=== PATIENT | female | born 1960 | race Caucasian/White ===

== ENCOUNTER 2018-09-27 18:15 | Inpatient (IN) | payer MEDICAID, OTHER ==
[2018-09-27 19:15] LABS: Glucose,Whole Blood 311 mg/dL (75-99)
[2018-09-27] MEDS ORDERED: THIAMINE 100 MG/ML 2 ML VIAL IM STA (19:25)
[2018-09-27] MEDS ORDERED: LORazepam 2 MG/ML INJ IV PRN ×3 (19:25)
[2018-09-27] MEDS ORDERED: SODIUM CHLORIDE 0.9% 1,000 ML IV STA (19:29)
--- NOTE | 2018-09-27 19:53 | ED ---
General Adult HPI - General Source: patient, RN notes reviewed Mode of arrival: ambulatory Limitations: no limitations <Robert Elias P - Last Filed: 09/28/18 13:02> <Cyndi Kolb P - Last Filed: 10/01/18 09:04> - General Chief complaint: Alcohol Stated complaint: diabetic/ETOH Time Seen by Provider: 09/27/18 18:50 - History of Present Illness Initial comments: 58-year-old female with a past medical history of alcoholism presents to the emergency department for multiple complaints. Patient states she is at [facility] for alcoholism but has been drinking today. She states that she has elevated glucose levels at [facility] in the 300s. She states she also is feeling depressed. She states she has not taken her antidepressants for the past 3 weeks because she "crushed and snorted them." Patient states she has had suicidal thoughts over the past couple days. Patient states the thoughts were worst yesterday. She states her plan was to take all of her medications at once when they are refilled in one week. She denies any homicidal thoughts. Caregivers from [facility] brought her in because she is supposed to go to [facility] but her glucose levels were too high for them to accept her, in additional to the suicidal thoughts. Patient has no other complaints at this time including shortness of breath, chest pain, abdominal pain, nausea or vomiting, headache, or visual changes. (Robert Elias) - Related Data Home Medications Medication Instructions Recorded Confirmed Citalopram Hydrobromide [CeleXA] 10 mg PO DAILY 09/27/18 09/28/18 DULoxetine HCL [Cymbalta] 30 mg PO DAILY 09/27/18 09/28/18 Ergocalciferol (Vitamin D2) 50,000 unit PO Q7D 09/27/18 09/28/18 [Vitamin D2] Gabapentin [Neurontin] 300 mg PO TID 09/27/18 09/28/18 Hydrochlorothiazide 25 mg PO DAILY 09/27/18 09/28/18 Ibuprofen [Motrin] 800 mg PO TID PRN 09/27/18 09/28/18 Insulin Glargine,Hum.rec.anlog 30 unit SQ HS 09/27/18 09/28/18 [Basaglar Hinapen U-100] Lisinopril [Zestril] 20 mg PO DAILY 09/27/18 09/28/18 metFORMIN HCL [Glucophage] 500 mg PO DAILY 09/27/18 09/28/18 Allergies Allergy/AdvReac Type Severity Reaction Status Date / Time No Known Allergies Allergy Unverified 09/28/18 05:54 Review of Systems ROS Other: All systems not noted in ROS Statement are negative. <Robert Elias P - Last Filed: 09/28/18 13:02> ROS Other: All systems not noted in ROS Statement are negative. <Cyndi Kolb P - Last Filed: 10/01/18 09:04> ROS Statement: Those systems with pertinent positive or pertinent negative responses have been documented in the HPI. Past Medical History History of Any Multi-Drug Resistant Organisms: None Reported Past Psychological History: Depression Past Alcohol Use History: Abuse, Daily Past Drug Use History: None Reported <Robert Elias P - Last Filed: 09/28/18 13:02> General Exam Limitations: no limitations General appearance: alert, in no apparent distress Head exam: Present: atraumatic, normocephalic, normal inspection Eye exam: Present: normal appearance, PERRL, EOMI. Absent: scleral icterus, conjunctival injection, periorbital swelling ENT exam: Present: normal exam, normal oropharynx, mucous membranes moist Neck exam: Present: normal inspection, full ROM. Absent: tenderness, meningismus, lymphadenopathy Respiratory exam: Present: normal lung sounds bilaterally. Absent: respiratory distress, wheezes, rales, rhonchi, stridor Cardiovascular Exam: Present: regular rate, normal rhythm, normal heart sounds. Absent: systolic murmur, diastolic murmur, rubs, gallop, clicks Neurological exam: Present: alert, oriented X3, CN II-XII intact Psychiatric exam: Present: normal affect, normal mood <Robert Elias P - Last Filed: 09/28/18 13:02> Vital Signs 09/27/18 18:43 Temperature 98.3 F Pulse Rate 105 H Respiratory 16 Rate Blood Pressure 143/83 O2 Sat by Pulse 96 Oximetry Medical Decision Making - Lab Data Result diagrams: 09/27/18 21:06 09/27/18 21:06 <Robert Elias P - Last Filed: 09/28/18 13:02> - Lab Data Result diagrams: 09/27/18 21:06 09/27/18 21:06 <Cyndi Kolb - Last Filed: 10/01/18 09:04> - Medical Decision Making 58-year-old female with a past medical history of alcohol use and presents to the emergency department for multiple complaints. She states she is at [facility] for alcohol and has been drinking today. Patient also has suicidal thoughts with a plan to overdose on her medications once they're refilled next week. On exam patient is visibly upset but is consolable. Glucose is 311, patient given a liter of fluids which did decrease to 250. CBC and CMP otherwise unremarkable. Patient will be seeing EPS once sober. Care was handed out to Dr. Kolb at 2300 pending EPS eval. (Robert Elias) EPS evaluated the patient and recommend admission. Patient signed herself in willingly. Patient transferred to psychiatric floor. (Cyndi Kolb) - Lab Data Lab Results 09/27/18 09/27/18 09/27/18 Range/Units 18:58 21:06 21:06 WBC (3.8-10.6) k/uL RBC (3.80-5.40) m/uL Hgb (11.4-16.0) gm/dL Hct (34.0-46.0) % MCV (80.0-100.0) fL MCH (25.0-35.0) pg MCHC (31.0-37.0) g/dL RDW (11.5-15.5) % Plt Count (150-450) k/uL Neutrophils % % Lymphocytes % % Monocytes % % Eosinophils % % Basophils % % Neutrophils # (1.3-7.7) k/uL Lymphocytes # (1.0-4.8) k/uL Monocytes # (0-1.0) k/uL Eosinophils # (0-0.7) k/uL Basophils # (0-0.2) k/uL Sodium 143 (137-145) mmol/L Potassium 3.9 (3.5-5.1) mmol/L Chloride 107 (98-107) mmol/L Carbon Dioxide 27 (22-30) mmol/L Anion Gap 9 mmol/L BUN 14 (7-17) mg/dL Creatinine 0.63 (0.52-1.04) mg/dL Est GFR (CKD-EPI)AfAm >90 (>60 ml/min/1.73 sqM) Est GFR (CKD-EPI)NonAf >90 (>60 ml/min/1.73 sqM) Glucose 305 H (74-99) mg/dL POC Glucose (mg/dL) 311 H (75-99) mg/dL POC Glu Milk Receiver ID Bettina Chatman Calcium 8.7 (8.4-10.2) mg/dL Magnesium 1.8 (1.6-2.3) mg/dL Total Bilirubin 0.2 (0.2-1.3) mg/dL AST 13 L (14-36) U/L ALT 31 (9-52) U/L Alkaline Phosphatase 176 H (38-126) U/L Total Protein 6.7 (6.3-8.2) g/dL Albumin 3.7 (3.5-5.0) g/dL Urine HCG, Qual Not Detected (Not Detectd) Urine Opiates Screen (NotDetected) Ur Oxycodone Screen (NotDetected) Urine Methadone Screen (NotDetected) Ur Propoxyphene Screen (NotDetected) Ur Barbiturates Screen (NotDetected) U Tricyclic Antidepress (NotDetected) Ur Phencyclidine Scrn (NotDetected) Ur Amphetamines Screen (NotDetected) U Methamphetamines Scrn (NotDetected) U Benzodiazepines Scrn (NotDetected) Urine Cocaine Screen (NotDetected) U Marijuana (THC) Screen (NotDetected) Acetone, Qual Negative (Negative) 09/27/18 09/27/18 09/27/18 Range/Units 21:06 21:06 23:00 WBC 6.7 (3.8-10.6) k/uL RBC 3.76 L (3.80-5.40) m/uL Hgb 11.1 L (11.4-16.0) gm/dL Hct 34.1 (34.0-46.0) % MCV 90.8 (80.0-100.0) fL MCH 29.4 (25.0-35.0) pg MCHC 32.4 (31.0-37.0) g/dL RDW 14.5 (11.5-15.5) % Plt Count 274 (150-450) k/uL Neutrophils % 52 % Lymphocytes % 38 % Monocytes % 4 % Eosinophils % 3 % Basophils % 1 % Neutrophils # 3.5 (1.3-7.7) k/uL Lymphocytes # 2.6 (1.0-4.8) k/uL Monocytes # 0.3 (0-1.0) k/uL Eosinophils # 0.2 (0-0.7) k/uL Basophils # 0.0 (0-0.2) k/uL Sodium (137-145) mmol/L Potassium (3.5-5.1) mmol/L Chloride (98-107) mmol/L Carbon Dioxide (22-30) mmol/L Anion Gap mmol/L BUN (7-17) mg/dL Creatinine (0.52-1.04) mg/dL Est GFR (CKD-EPI)AfAm (>60 ml/min/1.73 sqM) Est GFR (CKD-EPI)NonAf (>60 ml/min/1.73 sqM) Glucose (74-99) mg/dL POC Glucose (mg/dL) 250 H (75-99) mg/dL POC Glu Milk Receiver ID William Elmore Calcium (8.4-10.2) mg/dL Magnesium (1.6-2.3) mg/dL Total Bilirubin (0.2-1.3) mg/dL AST (14-36) U/L ALT (9-52) U/L Alkaline Phosphatase (38-126) U/L Total Protein (6.3-8.2) g/dL Albumin (3.5-5.0) g/dL Urine HCG, Qual (Not Detectd) Urine Opiates Screen Not Detected (NotDetected) Ur Oxycodone Screen Not Detected (NotDetected) Urine Methadone Screen Not Detected (NotDetected) Ur Propoxyphene Screen Not Detected (NotDetected) Ur Barbiturates Screen Not Detected (NotDetected) U Tricyclic Antidepress Not Detected (NotDetected) Ur Phencyclidine Scrn Not Detected (NotDetected) Ur Amphetamines Screen Not Detected (NotDetected) U Methamphetamines Scrn Not Detected (NotDetected) U Benzodiazepines Scrn Not Detected (NotDetected) Urine Cocaine Screen Not Detected (NotDetected) U Marijuana (THC) Screen Not Detected (NotDetected) Acetone, Qual (Negative) Disposition <Robert Elias P - Last Filed: 09/28/18 13:02> <Cyndi Kolb P - Last Filed: 10/01/18 09:04> Clinical Impression: Depression, Suicidal thoughts Disposition: ADMITTED IP TO THIS HOSP Condition: Fair
[2018-09-27 21:15] LABS: Basophils % (A) 1 %; Eosinophils # (A) 0.2 k/uL (0-0.7); Eosinophils % (A) 3 %; HCT 34.1 % (34.0-46.0); HGB 11.1 gm/dL (11.4-16.0); Lymphocytes # (A) 2.6 k/uL (1.0-4.8); Lymphocytes % (A) 38 %; MCH 29.4 pg (25.0-35.0); MCHC 32.4 g/dL (31.0-37.0); MCV 90.8 fL (80.0-100.0); Mean Platelet Volume 6.6; Monocytes # (A) 0.3 k/uL (0-1.0); Monocytes % (A) 4 %; Neutrophils # (A) 3.5 k/uL (1.3-7.7); Neutrophils % (A) 52 %; Platelet Count 274 k/uL (150-450); RBC 3.76 m/uL (3.80-5.40); RDW 14.5 % (11.5-15.5); WBC 6.7 k/uL (3.8-10.6)
[2018-09-27] MEDS: THIAMINE 100 MG TAB PO SCH ×2 (21:21→21:22)
[2018-09-27 21:27] LABS: Amphetamine Screen,Urine Not Detected (NotDetected); Barbiturate Screen,Urine Not Detected (NotDetected); Benzodiazepines Screen,Urine Not Detected (NotDetected); Cocaine Screen,Urine Not Detected (NotDetected); Methadone Screen, Urine Not Detected (NotDetected); Opiate Screen,Urine Not Detected (NotDetected); Oxycodone Screen, Urine Not Detected (NotDetected); Phencyclidine Screen,Urine Not Detected (NotDetected); Tricyclic Antidepressant,Urine Not Detected (NotDetected); Urn Cannabinoid Scrn Not Detected (NotDetected)
[2018-09-27 21:31] LABS: ALT 31 U/L (9-52); AST 13 U/L (14-36); Albumin 3.7 g/dL (3.5-5.0); Alkaline Phosphatase 176 U/L (38-126); Anion Gap 9 mmol/L; Blood Urea Nitrogen 14 mg/dL (7-17); Calcium 8.7 mg/dL (8.4-10.2); Carbon Dioxide 27 mmol/L (22-30); Chloride 107 mmol/L (98-107); Glucose 305 mg/dL (74-99); Magnesium 1.8 mg/dL (1.6-2.3); Potassium 3.9 mmol/L (3.5-5.1); Sodium 143 mmol/L (137-145); Total Bilirubin 0.2 mg/dL (0.2-1.3); Total Protein 6.7 g/dL (6.3-8.2)
[2018-09-27 23:02] LABS: Glucose,Whole Blood 250 mg/dL (75-99)
[2018-09-27] MEDS ORDERED: SODIUM CHLORIDE 0.9% 1,000 ML IV ONE (23:09)
[2018-09-28 05:36] LABS: Glucose,Whole Blood 251 mg/dL (75-99)
[2018-09-28] MEDS ORDERED: MAG HYDROX/AL HYDROX/SIMETH 30 ML CUP PO PRN (05:36)
[2018-09-28] MEDS ORDERED: ACETAMINOPHEN TAB 325 MG TAB PO PRN (05:36)
[2018-09-28] MEDS ORDERED: MAGNESIUM HYDROXIDE 2,400 MG/10 ML CUP PO PRN (05:36)
[2018-09-28] MEDS ORDERED: LORazepam 1 MG TAB PO PRN (05:42)
[2018-09-28 07:02] VITALS: BMI 37.6
[2018-09-28] MEDS: INSULIN ASPART 100 UNIT/ML 1 ML 10 ML VIAL SQ SCH ×3 (07:53→17:54)
[2018-09-28 07:54] LABS: Appearance,Urine Cloudy (Clear); Bacteria,Urine Occasional /hpf; Bilirubin,Urine Negative (Negative); Blood,Urine Negative (Negative); Color,Urine Light Yellow; Glucose,Urine (UA) 4+ (Negative); Ketones,Urine Negative (Negative); Leukocyte Esterase,Urine Large (Negative); Nitrite,Urine Positive (Negative); PH, Urine 5.5 (5.0-8.0); Protein,Urine Trace (Negative); RBC,Urine 1 /hpf (0-5); Specific Gravity,Urine 1.015 (1.001-1.035); Squamous Epithelial Cell,Urine 3 /hpf (0-4); Urobilinogen,Urine <2.0 mg/dL (<2.0); WBC,Urine 147 /hpf (0-5)
[2018-09-28] MEDS: LORazepam 1 MG TAB PO SCH ×3 (08:00→21:13)
[2018-09-28] MEDS: LISINOPRIL 20 MG TAB PO SCH (08:00)
[2018-09-28] MEDS: GABAPENTIN 300 MG CAP PO SCH ×3 (08:00→21:13)
[2018-09-28] MEDS: metFORMIN 500 MG TAB PO SCH (08:00)
[2018-09-28] MEDS ORDERED: NICOTINE 14MG/24HR PATCH TRANSDERM SCH (09:00)
[2018-09-28 11:14] LABS: Albumin 3.8 g/dL (3.5-5.0); Bilirubin, Delta 0.1 mg/dL (0.0-0.2); Bilirubin,Unconjugated 0.6 mg/dL (0.0-1.1); Total Bilirubin 0.7 mg/dL (0.2-1.3); Total Protein 6.6 g/dL (6.3-8.2)
--- NOTE | 2018-09-28 11:26 | P.HP ---
Psychiatric H&P - . History & Physical: Allergies Allergy/AdvReac Type Severity Reaction Status Date / Time No Known Allergies Allergy Unverified 09/28/18 05:54 Vital Signs Temp 97.9 F 09/28/18 06:53 Pulse 89 09/28/18 09:56 Resp 15 09/28/18 06:53 BP 161/76 09/28/18 09:56 Pulse Ox 96 09/28/18 06:53 Intake & Output 09/27/18 09/28/18 09/28/18 18:59 06:59 18:59 Weight 90.718 kg 96.417 kg Laboratory Last Values WBC 6.7 k/uL (3.8-10.6) 09/27/18 21:06 RBC 3.76 m/uL (3.80-5.40) L 09/27/18 21:06 Hgb 11.1 gm/dL (11.4-16.0) L 09/27/18 21:06 Hct 34.1 % (34.0-46.0) 09/27/18 21:06 MCV 90.8 fL (80.0-100.0) 09/27/18 21:06 MCH 29.4 pg (25.0-35.0) 09/27/18 21:06 MCHC 32.4 g/dL (31.0-37.0) 09/27/18 21:06 RDW 14.5 % (11.5-15.5) 09/27/18 21:06 Plt Count 274 k/uL (150-450) 09/27/18 21:06 Neutrophils % 52 % 09/27/18 21:06 Lymphocytes % 38 % 09/27/18 21:06 Monocytes % 4 % 09/27/18 21:06 Eosinophils % 3 % 09/27/18 21:06 Basophils % 1 % 09/27/18 21:06 Neutrophils # 3.5 k/uL (1.3-7.7) 09/27/18 21:06 Lymphocytes # 2.6 k/uL (1.0-4.8) 09/27/18 21:06 Monocytes # 0.3 k/uL (0-1.0) 09/27/18 21:06 Eosinophils # 0.2 k/uL (0-0.7) 09/27/18 21:06 Basophils # 0.0 k/uL (0-0.2) 09/27/18 21:06 Sodium 143 mmol/L (137-145) 09/27/18 21:06 Potassium 3.9 mmol/L (3.5-5.1) 09/27/18 21:06 Chloride 107 mmol/L (98-107) 09/27/18 21:06 Carbon Dioxide 27 mmol/L (22-30) 09/27/18 21:06 Anion Gap 9 mmol/L 09/27/18 21:06 BUN 14 mg/dL (7-17) 09/27/18 21:06 Creatinine 0.63 mg/dL (0.52-1.04) 09/27/18 21:06 Est GFR (CKD-EPI)AfAm >90 (>60 ml/min/1.73 sqM) 09/27/18 21:06 Est GFR (CKD-EPI)NonAf >90 (>60 ml/min/1.73 sqM) 09/27/18 21:06 Glucose 305 mg/dL (74-99) H 09/27/18 21:06 POC Glucose (mg/dL) 251 mg/dL (75-99) H 09/28/18 05:33 POC Glu Armature Inspector ID William Elmore 09/28/18 05:33 Calcium 8.7 mg/dL (8.4-10.2) 09/27/18 21:06 Magnesium 1.8 mg/dL (1.6-2.3) 09/27/18 21:06 Total Bilirubin 0.7 mg/dL (0.2-1.3) 09/28/18 10:32 Conjugated Bilirubin 0.0 mg/dL (0.0-0.3) 09/28/18 10:32 Unconjugated Bilirubin 0.6 mg/dL (0.0-1.1) 09/28/18 10:32 Delta Bilirubin 0.1 mg/dL (0.0-0.2) 09/28/18 10:32 AST 15 U/L (14-36) 09/28/18 10:32 ALT 20 U/L (9-52) 09/28/18 10:32 Alkaline Phosphatase 146 U/L (38-126) H 09/28/18 10:32 Total Protein 6.6 g/dL (6.3-8.2) 09/28/18 10:32 Albumin 3.8 g/dL (3.5-5.0) 09/28/18 10:32 Triglycerides 76 mg/dL (<150) 09/28/18 10:32 Cholesterol 201 mg/dL (<200) H 09/28/18 10:32 LDL Cholesterol, Calc 82 mg/dL (0-99) 09/28/18 10:32 HDL Cholesterol 104 mg/dL (40-60) H 09/28/18 10:32 Urine Color Light Yellow 09/28/18 07:25 Urine Appearance Cloudy (Clear) H 09/28/18 07:25 Urine pH 5.5 (5.0-8.0) 09/28/18 07:25 Ur Specific [place] 1.015 (1.001-1.035) 09/28/18 07:25 Urine Protein Trace (Negative) H 09/28/18 07:25 Urine Glucose (UA) 4+ (Negative) H 09/28/18 07:25 Urine Ketones Negative (Negative) 09/28/18 07:25 Urine Blood Negative (Negative) 09/28/18 07:25 Urine Nitrite Positive (Negative) H 09/28/18 07:25 Urine Bilirubin Negative (Negative) 09/28/18 07:25 Urine Urobilinogen <2.0 mg/dL (<2.0) 09/28/18 07:25 Ur Leukocyte Esterase Large (Negative) H 09/28/18 07:25 Urine RBC 1 /hpf (0-5) 09/28/18 07:25 Urine WBC 147 /hpf (0-5) H 09/28/18 07:25 Ur Squamous Epith Cells 3 /hpf (0-4) 09/28/18 07:25 Urine Bacteria Occasional /hpf (None) H 09/28/18 07:25 Urine HCG, Qual Not Detected (Not Detectd) 09/27/18 21:06 Urine Opiates Screen Not Detected (NotDetected) 09/27/18 21:06 Ur Oxycodone Screen Not Detected (NotDetected) 09/27/18 21:06 Urine Methadone Screen Not Detected (NotDetected) 09/27/18 21:06 Ur Propoxyphene Screen Not Detected (NotDetected) 09/27/18 21:06 Ur Barbiturates Screen Not Detected (NotDetected) 09/27/18 21:06 U Tricyclic Antidepress Not Detected (NotDetected) 09/27/18 21:06 Ur Phencyclidine Scrn Not Detected (NotDetected) 09/27/18 21:06 Ur Amphetamines Screen Not Detected (NotDetected) 09/27/18 21:06 U Methamphetamines Scrn Not Detected (NotDetected) 09/27/18 21:06 U Benzodiazepines Scrn Not Detected (NotDetected) 09/27/18 21:06 Urine Cocaine Screen Not Detected (NotDetected) 09/27/18 21:06 U Marijuana (THC) Screen Not Detected (NotDetected) 09/27/18 21:06 Acetone, Qual Negative (Negative) 09/27/18 21:06 09/28/18 11:19 IDENTIFYING DATA: This patient is a 58-year-old but female who was admitted to the mental health unit for acute suicidal ideation. HPI: The patient was admitted to the mental health unit through the emergency room. She presented with a markedly elevated blood sugar and she was intoxicated with alcohol. She has a history of major depressive disorder and alcohol use disorder. She reported she had recently relapsed for the last week drinking a fifth per day. She has 3 DUI offenses and was concerned that this would violate her probation and send her to prison/senior living. She describes feeling depressed tearful on a regular basis and feels currently hopeless. She had thoughts of overdosing on her medications once she got them filled. Appetite stable sleep has been impaired energies been low. She endorses no significant anxiety symptoms. No endorsed history of hypomanic or manic episodes. She is reporting no auditory or visual hallucinations or any specific delusions. PAST PSYCHIATRIC HISTORY: The patient reports no prior inpatient psychiatric admissions, no history of suicide attempts, she was prescribed Cymbalta 30 mg daily and Celexa 10 mg daily concurrently at a rehab facility and this has been perpetuated by a nurse practitioner. In the past she had been treated with Prozac but found it ineffective. PMH: Diabetes requiring insulin hypertension treated with lisinopril ALLERGIES: NO KNOWN DRUG ALLERGIES MEDICATIONS: She was placed on Neurontin for diabetic neuropathy but has not found it helpful CHEMICAL DEPENDENCY HISTORY: Alcohol use disorder, most recent relapses one week ago where she has been consuming a fifth a day. Prior to that she reports she was sober for several months. No reported use of marijuana or illicit drugs. She has been in inpatient chemical dependency treatment twice and a longer term outpatient program. FAMILY PSYCHIATRIC HISTORY: None reported, no suicides in the family FAMILY CHEMICAL DEPENDENCY HISTORY: Her father and brother were known to have alcohol use disorders SOCIAL HISTORY: The patient is 58 years old she's been for 25 years but for 10 years. She has no house or apartment of her own. She had been staying at a three-quarter house through [place]. She has 1 son 1 daughter. She is originally from [place]. She is currently unemployed no service. Legal history involves 2 DUI arrests in the remote past and a third DUI arrest this past December. She did spend 81 days in prison. She is currently on probation. Abuse history none reported. MENTAL STATUS EXAM: The patient is an overweight female appearing her stated age. She is dressed in her own clothing. Hygiene grooming fair. She is pleasant and cooperative. She endorses a depressed mood with hopelessness thinking with recent suicidal ideation with plan of overdosing. She reports no homicidal ideation intent or plan. She demonstrates a constricted affect. She endorses no auditory or visual hallucinations or any specific delusions there is no observed evidence of psychosis. Thought process is linear she demonstrates no circumstantial thinking tangential thinking loose associations or flight of ideas. She does not appear hypomanic or manic. She demonstrates no verbal or physical aggressiveness. She demonstrates no involuntary repetitive movements. She is oriented to person place and date. She is able to name the days of the week backwards. STRENGTHS/WEAKNESSES: Strengths: Willing to receive treatment voluntarily weaknesses: Alcohol use disorder INTELLECTUAL FUNCTIONING: Average IMPRESSIONS: [] 1. Major depressive disorder recurrent severe without psychosis, alcohol use disorder 2. Diabetes, history of hypertension, neuropathy 3. Potential violation of probation PLAN: The patient has been admitted to the mental health unit voluntarily. We reviewed her presenting symptoms and treatment options. We will discontinue the Celexa and continue the Cymbalta but increase the dose to 60 mg daily. We will at least temporarily continue the Neurontin but we'll consider discontinuing it. Ativan is being used to prevent alcohol withdrawal symptoms. She demonstrates no tremor or physical evidence of withdrawal at this point. She will be seen by internal medicine for routine history and physical exam. Social work will meet with the patient to complete a psychosocial assessment. We will involve family in treatment and discharge planning as she will allow. She is encouraged to attend groups.
[2018-09-28] MEDS: FOLIC ACID 1 MG TAB PO SCH (11:35)
[2018-09-28] MEDS: DULoxetine HCL 60 MG CAPSULE.DR PO SCH (11:35)
[2018-09-28] MEDS: THIAMINE 100 MG TAB PO SCH (11:35)
[2018-09-28 12:36] LABS: Glucose,Whole Blood 217 mg/dL (75-99)
--- NOTE | 2018-09-28 17:14 | P.CONS ---
History of Present Illness - History of Present Illness This is a pleasant 58 years old female with past medical history of diabetes mellitus, hypertension, diabetic neuropathy and Crohn's disease. Presents with signs and symptoms of major to separate disorder with psychosis and alcohol use disorder. she states she comes to the hosptial because she was drinking again she drinks a half pint daily ,seven days a week, her last drink was yesterday , usually she does not go to alcohol withdrawal, or very mild one , pt is currently on ativan prn . also she takes glucophage 500 mg bid and 30 U of long acting insulin once at night ( she could not remember the name of the medicine ) and she takes lisinopril for HTN. On admission Vitas looks stable, blood pressure is a little high side. Sugar and 217-50 range. LFTs showing liver enzymes within normal range. Urinalysis is suspicious for infection, no fever or leukocytosis. We will treat her with short course of antibiotics which can be given orally. Review of Systems CONSTITUTIONAL: No fever, no malaise, no fatigue. HEENT: No recent visual problems or hearing problems. Denied any sore throat. CARDIOVASCULAR: No orthopnea, PND, no palpitations, no syncope. PULMONARY: No shortness of breath, no cough, no hemoptysis. GASTROINTESTINAL: No diarrhea, no nausea, no vomiting, no abdominal pain. Normoactive bowel sounds. NEUROLOGICAL: No headaches, no weakness, no numbness. HEMATOLOGICAL: Denies any bleeding or petechiae. GENITOURINARY: Denies any burning micturition, frequency, or urgency. MUSCULOSKELETAL/RHEUMATOLOGICAL: Denies any joint pain, swelling, or any muscle pain. ENDOCRINE: Denies any polyuria or polydipsia. Past Medical History Past Medical History: Diabetes Mellitus, Hypertension Additional Past Medical History / Comment(s): Neuropathy bilat lower extremeties , Crohns, Carpal Tunnel History of Any Multi-Drug Resistant Organisms: None Reported Additional Past Surgical History / Comment(s): 2 C sections, double hernia @ 12 years old Past Psychological History: Depression Past Alcohol Use History: Abuse, Daily Past Drug Use History: None Reported Medications and Allergies Home Medications Medication Instructions Recorded Confirmed Type Citalopram Hydrobromide [CeleXA] 10 mg PO DAILY 09/27/18 09/28/18 History DULoxetine HCL [Cymbalta] 30 mg PO DAILY 09/27/18 09/28/18 History Ergocalciferol (Vitamin D2) 50,000 unit PO Q7D 09/27/18 09/28/18 History [Vitamin D2] Gabapentin [Neurontin] 300 mg PO TID 09/27/18 09/28/18 History Hydrochlorothiazide 25 mg PO DAILY 09/27/18 09/28/18 History Ibuprofen [Motrin] 800 mg PO TID PRN 09/27/18 09/28/18 History Insulin Glargine,Hum.rec.anlog 30 unit SQ HS 09/27/18 09/28/18 History [Basaglar Kwikpen U-100] Lisinopril [Zestril] 20 mg PO DAILY 09/27/18 09/28/18 History metFORMIN HCL [Glucophage] 500 mg PO DAILY 09/27/18 09/28/18 History Allergies Allergy/AdvReac Type Severity Reaction Status Date / Time No Known Allergies Allergy Unverified 09/28/18 05:54 Physical Exam Vitals: Vital Signs Temp Pulse Pulse Resp BP BP Pulse Ox 09/28/18 09:56 89 161/76 09/28/18 06:53 97.9 F 92 15 157/85 96 09/28/18 06:51 70 16 148/70 97 09/27/18 18:43 98.3 F 105 H 16 143/83 96 Intake and Output 09/28/18 09/28/18 09/28/18 06:59 14:59 22:59 Other: Weight 96.417 kg GENERAL: The patient is alert and oriented x3, not in any acute distress. Well developed, well nourished. HEENT: Pupils are round and equally reacting to light. EOMI. No scleral icterus. No conjunctival pallor. Normocephalic, atraumatic. No pharyngeal erythema. No thyromegaly. CARDIOVASCULAR: S1 and S2 present. No murmurs, rubs, or gallops. PULMONARY: Chest is clear to auscultation, no wheezing or crackles. ABDOMEN: Soft, nontender, nondistended, normoactive bowel sounds. No palpable organomegaly. MUSCULOSKELETAL: No joint swelling or deformity. EXTREMITIES: No cyanosis, clubbing, or pedal edema. NEUROLOGICAL: Gross neurological examination did not reveal any focal deficits. SKIN: No rashes. Results CBC & Chem 7: 09/27/18 21:06 09/27/18 21:06 Labs: Abnormal Lab Results - Last 24 Hours (Table) 09/27/18 09/27/18 09/27/18 Range/Units 18:58 21:06 21:06 RBC 3.76 L (3.80-5.40) m/uL Hgb 11.1 L (11.4-16.0) gm/dL Glucose 305 H (74-99) mg/dL POC Glucose (mg/dL) 311 H (75-99) mg/dL AST 13 L (14-36) U/L Alkaline Phosphatase 176 H (38-126) U/L Cholesterol (<200) mg/dL HDL Cholesterol (40-60) mg/dL Urine Appearance (Clear) Urine Protein (Negative) Urine Glucose (UA) (Negative) Urine Nitrite (Negative) Ur Leukocyte Esterase (Negative) Urine WBC (0-5) /hpf Urine Bacteria (None) /hpf 09/27/18 09/28/18 09/28/18 Range/Units 23:00 05:33 07:25 RBC (3.80-5.40) m/uL Hgb (11.4-16.0) gm/dL Glucose (74-99) mg/dL POC Glucose (mg/dL) 250 H 251 H (75-99) mg/dL AST (14-36) U/L Alkaline Phosphatase (38-126) U/L Cholesterol (<200) mg/dL HDL Cholesterol (40-60) mg/dL Urine Appearance Cloudy H (Clear) Urine Protein Trace H (Negative) Urine Glucose (UA) 4+ H (Negative) Urine Nitrite Positive H (Negative) Ur Leukocyte Esterase Large H (Negative) Urine WBC 147 H (0-5) /hpf Urine Bacteria Occasional H (None) /hpf 09/28/18 09/28/18 Range/Units 10:32 12:22 RBC (3.80-5.40) m/uL Hgb (11.4-16.0) gm/dL Glucose (74-99) mg/dL POC Glucose (mg/dL) 217 H (75-99) mg/dL AST (14-36) U/L Alkaline Phosphatase 146 H (38-126) U/L Cholesterol 201 H (<200) mg/dL HDL Cholesterol 104 H (40-60) mg/dL Urine Appearance (Clear) Urine Protein (Negative) Urine Glucose (UA) (Negative) Urine Nitrite (Negative) Ur Leukocyte Esterase (Negative) Urine WBC (0-5) /hpf Urine Bacteria (None) /hpf Assessment and Plan Assessment: Alcohol abuse Risk for alcohol withdrawal History of diabetes mellitus Diabetic neuropathy Essential hypertension Major depression with psychosis and other psychiatric illnesses, management as per primary site team. Plan: This is a pleasant 58 years old female presents with depressive symptoms. Consult and further medical management. We'll put her on Ativan when necessary for possible local withdrawal. Neurontin she takes will help comment down the patient. Keflex for UTI. Continue with metformin and lisinopril. we will add levemir 10 units at night instead of the 30 units she was taking at home and c/ w ISS . Norvasc 2.5 mg as a start Labs and medication were reviewed.. Continue same treatment. Continue with symptomatic treatment. Resume home medication. Monitor lytes and vitals. DVT and GI prophylaxis. Further recommendations of the clinical course of the patient DVT prophylaxis: Subcutaneous heparin GI Prophylaxis: Pepcid PT/OT: Pending Prognosis is guarded
[2018-09-28] MEDS: CEPHALEXIN 500 MG CAP PO SCH ×2 (17:23→21:13)
[2018-09-28] MEDS: amLODIPine 2.5 MG TAB PO SCH (17:23)
[2018-09-28 17:36] LABS: Glucose,Whole Blood 195 mg/dL (75-99)
[2018-09-28 19:10] LABS: Hemoglobin A1C 8.8 % (4.0-6.0)
[2018-09-28 20:11] LABS: Glucose,Whole Blood 213 mg/dL (75-99)
[2018-09-28] MEDS ORDERED: INSULIN DETEMIR 100 UNIT/ML 10 ML VIAL SQ SCH (21:00)
[2018-09-29 06:11] LABS: Glucose,Whole Blood 251 mg/dL (75-99)
[2018-09-29] MEDS: INSULIN ASPART 100 UNIT/ML 1 ML 10 ML VIAL SQ SCH ×3 (07:42→17:40)
[2018-09-29] MEDS: DULoxetine HCL 60 MG CAPSULE.DR PO SCH (08:24)
[2018-09-29] MEDS: amLODIPine 2.5 MG TAB PO SCH (08:24)
[2018-09-29] MEDS: THIAMINE 100 MG TAB PO SCH (08:24)
[2018-09-29] MEDS: LISINOPRIL 20 MG TAB PO SCH (08:24)
[2018-09-29] MEDS: FOLIC ACID 1 MG TAB PO SCH (08:24)
[2018-09-29] MEDS: GABAPENTIN 300 MG CAP PO SCH ×3 (08:24→21:03)
[2018-09-29] MEDS: CEPHALEXIN 500 MG CAP PO SCH ×3 (08:24→21:03)
[2018-09-29] MEDS: metFORMIN 500 MG TAB PO SCH (08:24)
[2018-09-29] MEDS: LORazepam 1 MG TAB PO SCH ×2 (08:26→21:03)
[2018-09-29] MEDS: NALTREXONE HCL 50 MG TAB PO SCH (11:28)
--- NOTE | 2018-09-29 11:29 | P.PN ---
Progress Note - Text Interval history: The patient is found in the hallway she follows me to an interview room. She states her mood is still depressed she is tearful during our session. She said that she is disappointed her family again. We discussed reasons that she relapsed and things that she can do different to prevent the next relapse. She is worried about the legal consequences regarding this recent relapse. She is encouraged to call the [facility] to find out if she is no longer able to return there. We reviewed her psychotropic medications. We discussed initiating naltrexone to reduce cravings for alcohol use and she is agreeable. AST and ALT are within normal limits. She indicates she is eating she did sleep well last night. Mental status exam: The patient is an alert female appearing her stated age. She is pleasant cooperative. She endorses a depressed mood with hopelessness thinking. She is tearful throughout the session. She continues to have suicidal thoughts but indicates she safe here in the hospital. No homicidal ideation. No report of any auditory or visual hallucinations or any specific delusions. She does not appear overtly psychotic. She demonstrates no tangential thinking loose associations or flight of ideas she does not appear hypomanic or manic. She is demonstrating no tremulousness activity. She demonstrates no verbal or physical aggressiveness. Plan: The patient will continue on the Cymbalta as prescribed I will reduce the scheduled Ativan to 1 mg twice daily, blood pressure remains elevated, we will initiate naltrexone 50 mg daily. We will monitor her for safety she is encouraged to completely participate in groups. She is encouraged to call the [facility] to see if she is eligible to return.
[2018-09-29 12:47] LABS: Glucose,Whole Blood 185 mg/dL (75-99)
[2018-09-29 17:43] LABS: Glucose,Whole Blood 256 mg/dL (75-99)
[2018-09-29 20:10] LABS: Glucose,Whole Blood 227 mg/dL (75-99)
[2018-09-29] MEDS: INSULIN DETEMIR 100 UNIT/ML 10 ML VIAL SQ SCH (21:01)
[2018-09-30 06:36] LABS: Glucose,Whole Blood 146 mg/dL (75-99)
[2018-09-30] MEDS: LISINOPRIL 20 MG TAB PO SCH (07:39)
[2018-09-30] MEDS: amLODIPine 2.5 MG TAB PO SCH (07:39)
[2018-09-30] MEDS: NALTREXONE HCL 50 MG TAB PO SCH (07:39)
[2018-09-30] MEDS: metFORMIN 500 MG TAB PO SCH (07:39)
[2018-09-30] MEDS: GABAPENTIN 300 MG CAP PO SCH ×3 (07:39→20:55)
[2018-09-30] MEDS: LORazepam 1 MG TAB PO SCH (07:39)
[2018-09-30] MEDS: CEPHALEXIN 500 MG CAP PO SCH ×3 (07:39→20:55)
[2018-09-30] MEDS: DULoxetine HCL 60 MG CAPSULE.DR PO SCH (07:39)
[2018-09-30] MEDS: INSULIN ASPART 100 UNIT/ML 1 ML 10 ML VIAL SQ SCH ×3 (07:54→18:14)
--- NOTE | 2018-09-30 11:07 | P.PN ---
Progress Note - Text Interval history: The patient is found in group she follows me to an interview room. She indicates her mood is better in terms of suicidal thinking but she is concerned what will happen because of her relapse. She is hoping she will be able to return to this recorder home and not have to be violated to detention. He reports she attempted to call these recorder home without success. We reviewed her psychotropic medications her questions were answered. She is scoring 0 on the CIWA scale and finds the Ativan sedating. We discussed that we would taper off the scheduled dose as it is no longer needed. Mental status exam: The patient is alert she's cooperative she is dressed in hospital attire. Hygiene grooming adequate. She indicates her mood overall is improving. She does feel concerned about will happen because of her relapse. She is endorsing no acute suicidal ideation intent or plan at this time. She is reporting no auditory or visual hallucinations or any specific delusions. She is demonstrating no verbal or physical aggressiveness. She does not appear hypomanic or manic. Insight and judgment improving. She is oriented to person place and date. Plan: The patient will continue on her current psychotropic medications. She does appear to be stabilizing. She makes phone calls today to determine what her disposition will be upon discharge. Social work will assist when needed. We will monitor her for safety and encourage participation in the milieu. Vital signs reviewed.
[2018-09-30 12:10] LABS: Glucose,Whole Blood 357 mg/dL (75-99)
[2018-09-30 12:10] LABS: Glucose,Whole Blood 338 mg/dL (75-99)
[2018-09-30] MEDS: THIAMINE 100 MG TAB PO SCH (12:49)
[2018-09-30] MEDS: FOLIC ACID 1 MG TAB PO SCH (12:49)
[2018-09-30 17:09] LABS: Glucose,Whole Blood 209 mg/dL (75-99)
[2018-09-30 19:53] LABS: Glucose,Whole Blood 279 mg/dL (75-99)
[2018-09-30] MEDS ORDERED: INSULIN ASPART 100 UNIT/ML 1 ML 10 ML VIAL SQ ONE (20:17)
[2018-09-30] MEDS: INSULIN DETEMIR 100 UNIT/ML 10 ML VIAL SQ SCH (20:55)
[2018-10-01 03:45] LABS: Glucose,Whole Blood 108 mg/dL (75-99)
[2018-10-01 06:16] LABS: Glucose,Whole Blood 126 mg/dL (75-99)
[2018-10-01] MEDS: INSULIN ASPART 100 UNIT/ML 1 ML 10 ML VIAL SQ SCH ×4 (07:37→21:12)
[2018-10-01] MEDS: FOLIC ACID 1 MG TAB PO SCH (08:12)
[2018-10-01] MEDS: amLODIPine 2.5 MG TAB PO SCH (08:13)
[2018-10-01] MEDS: THIAMINE 100 MG TAB PO SCH (08:13)
[2018-10-01] MEDS: NALTREXONE HCL 50 MG TAB PO SCH (08:13)
[2018-10-01] MEDS: CEPHALEXIN 500 MG CAP PO SCH ×2 (08:13→17:09)
[2018-10-01] MEDS: GABAPENTIN 300 MG CAP PO SCH ×3 (08:13→20:40)
[2018-10-01] MEDS: DULoxetine HCL 60 MG CAPSULE.DR PO SCH (08:13)
[2018-10-01] MEDS: LISINOPRIL 20 MG TAB PO SCH (08:13)
[2018-10-01] MEDS: metFORMIN 500 MG TAB PO SCH (08:13)
--- NOTE | 2018-10-01 11:26 | P.PN ---
Progress Note - Text Interval history: The patient is found in her room she follows me to an interview room. She indicates she was told she has to go to inpatient chemical dependency treatment again before she can return to [facility]. She has made the call to the access line and social work has faxed the packet to [facility]. We are awaiting a placement date. The patient continues to participate in groups staff report that she is cooperative. Staff report that she is struggling with short-term memory as she seems to be asking the same questions repeatedly particularly in reference to her disposition on discharge. She indicates appetite stable she sleeping at night. She has no questions regarding her medications. Mental status exam: The patient is dressed in hospital gowns. Hygiene grooming adequate. Speech is fluent spontaneous nonpressured. She indicates her mood is okay but she is upset and anxious as to what happening next. Again we reviewed the plan and she is reassured. She denies having any suicidal or homicidal ideation intent or plan here in the hospital. She states she is concerned how she would feel if she was out on the street homeless. She is reporting no auditory or visual hallucinations. She demonstrates no verbal or physical aggressiveness. Affect is constricted. Plan: The patient will continue on her current psychotropic medication. We are awaiting a placement date to [facility]. We will monitor her for safety. Vital signs reviewed. She is encouraged to continue participating fully in the milieu.
[2018-10-01 12:45] LABS: Glucose,Whole Blood 277 mg/dL (75-99)
[2018-10-01 17:30] LABS: Glucose,Whole Blood 252 mg/dL (75-99)
[2018-10-01 19:50] LABS: Glucose,Whole Blood 234 mg/dL (75-99)
[2018-10-01] MEDS: INSULIN DETEMIR 100 UNIT/ML 10 ML VIAL SQ SCH (20:40)
[2018-10-02 06:33] LABS: Glucose,Whole Blood 185 mg/dL (75-99)
[2018-10-02] MEDS: INSULIN ASPART 100 UNIT/ML 1 ML 10 ML VIAL SQ SCH ×4 (07:37→20:14)
[2018-10-02] MEDS: THIAMINE 100 MG TAB PO SCH (08:53)
[2018-10-02] MEDS: metFORMIN 500 MG TAB PO SCH (08:54)
[2018-10-02] MEDS: amLODIPine 2.5 MG TAB PO SCH (08:54)
[2018-10-02] MEDS: NALTREXONE HCL 50 MG TAB PO SCH (08:54)
[2018-10-02] MEDS: GABAPENTIN 300 MG CAP PO SCH ×3 (08:54→20:15)
[2018-10-02] MEDS: LISINOPRIL 20 MG TAB PO SCH (08:54)
[2018-10-02] MEDS: FOLIC ACID 1 MG TAB PO SCH (08:54)
[2018-10-02] MEDS: DULoxetine HCL 60 MG CAPSULE.DR PO SCH (08:54)
--- NOTE | 2018-10-02 11:06 | P.PN ---
Progress Note - Text Interval history: The patient is found in group she follows me to an interview room. She indicates her mood is okay. We were informed that she has been accepted to [facility] but not until Sunday. We are trying to see if she is able to return to [facility] temporarily until Sunday. She has no questions regarding her psychotropic medications. We discussed her difficulties with short-term memory and again emphasized the need for her to abstain from alcohol. She is encouraged to write down coping skills she is learning while here and other details so they are not forgotten. Mental status exam: The patient is alert she is pleasant cooperative. She is dressed in hospital attire. Eye contact is appropriate speech is fluent spontaneous nonpressured. She is reporting no acute suicidal or homicidal ideation intent or plan. She is endorsing no symptoms of psychosis and there are no observed symptoms of psychosis. She demonstrates no verbal or physical aggressiveness she demonstrates no tremulousness activity. She does not demonstrate any tangential thinking loose associations or flight of ideas. She does seem to have some difficulty with short-term memory as evidenced over the last several days. Plan: The patient will continue on her current psychotropic medications. It appears she is clinically stabilizing. We are awaiting information regarding appropriate placement from the mental health unit. She is demonstrating future oriented thinking and plans on attending inpatient chemical dependency treatment. Vital signs reviewed.
[2018-10-02 12:42] LABS: Glucose,Whole Blood 244 mg/dL (75-99)
[2018-10-02 18:02] LABS: Glucose,Whole Blood 177 mg/dL (75-99)
[2018-10-02 20:06] LABS: Glucose,Whole Blood 348 mg/dL (75-99)
[2018-10-02] MEDS: INSULIN DETEMIR 100 UNIT/ML 10 ML VIAL SQ SCH (20:15)
[2018-10-03 06:33] LABS: Glucose,Whole Blood 138 mg/dL (75-99)
[2018-10-03] MEDS: metFORMIN 500 MG TAB PO SCH (07:47)
[2018-10-03] MEDS: NALTREXONE HCL 50 MG TAB PO SCH (07:47)
[2018-10-03] MEDS: LISINOPRIL 20 MG TAB PO SCH (07:47)
[2018-10-03] MEDS: INSULIN ASPART 100 UNIT/ML 1 ML 10 ML VIAL SQ SCH ×4 (07:47→20:55)
[2018-10-03] MEDS: DULoxetine HCL 60 MG CAPSULE.DR PO SCH (07:47)
[2018-10-03] MEDS: GABAPENTIN 300 MG CAP PO SCH ×3 (07:48→21:03)
[2018-10-03] MEDS: amLODIPine 2.5 MG TAB PO SCH (07:48)
--- NOTE | 2018-10-03 10:11 | P.PN ---
Progress Note - Text Interval history: The patient is found in group she follows me to an interview room. She indicates she was upset earlier. It appears since yesterday a plan was put together where she would be able to be discharged to her father's home for approximately 2 days and then be taken to inpatient chemical dependency treatment. The patient feels that she has been told that she cannot go anywhere but to rehab directly from this facility. She became upset but has now de-escalated and feels whenever the situation she will be able to navigate through. She has no questions regarding medication. She is attending groups. Mental status exam: The patient is alert she is dressed in hospital gowns. She has adequate hygiene grooming. Speech is fluent spontaneous nonpressured. She describes having a frustrated mood but feels that it's better now after talking it through. Affect is appropriately expresses. She is reporting no suicidal or homicidal ideation intent or plan. She reports no auditory or visual hallucinations or any specific delusions. There is no observed evidence of psychosis. Thought process can be circumstantial at times but overall linear. She demonstrates no verbal or physical aggressiveness. She is oriented to person place and date. Plan: The patient will continue on her current psychotropic medications. We will monitor her for safety.. I will confer with social work regarding the the potential requirement for her to go directly to inpatient chemical dependency treatment from this facility. Vital signs reviewed.
[2018-10-03] MEDS: THIAMINE 100 MG TAB PO SCH (10:59)
[2018-10-03] MEDS: FOLIC ACID 1 MG TAB PO SCH (10:59)
[2018-10-03 12:42] LABS: Glucose,Whole Blood 195 mg/dL (75-99)
[2018-10-03 17:43] LABS: Glucose,Whole Blood 197 mg/dL (75-99)
[2018-10-03 20:16] LABS: Glucose,Whole Blood 229 mg/dL (75-99)
[2018-10-03] MEDS: INSULIN DETEMIR 100 UNIT/ML 10 ML VIAL SQ SCH (20:57)
[2018-10-04 06:16] VITALS: PULSE 73
[2018-10-04 06:17] LABS: Glucose,Whole Blood 188 mg/dL (75-99)
[2018-10-04] MEDS: amLODIPine 2.5 MG TAB PO SCH (07:49)
[2018-10-04] MEDS: GABAPENTIN 300 MG CAP PO SCH ×3 (07:49→21:26)
[2018-10-04] MEDS: DULoxetine HCL 60 MG CAPSULE.DR PO SCH (07:49)
[2018-10-04] MEDS: NALTREXONE HCL 50 MG TAB PO SCH (07:50)
[2018-10-04] MEDS: LISINOPRIL 20 MG TAB PO SCH (07:50)
[2018-10-04] MEDS: metFORMIN 500 MG TAB PO SCH (07:50)
[2018-10-04] MEDS: INSULIN ASPART 100 UNIT/ML 1 ML 10 ML VIAL SQ SCH ×4 (07:59→21:28)
--- NOTE | 2018-10-04 09:11 | P.DS ---
Providers Date of admission: 09/28/18 05:20 Expected date of discharge: 10/05/18 Attending physician: Star Lin Consults: 09/28/18 05:36 Consult Physician Routine Consulting Provider: Raji Gandhi Consult Reason/Comments: For H & P for Medical Follow Up Do you want consulting provider notified?: Yes Primary care physician: Maryjane Larsen - Discharge Diagnosis(es) (1) Major depressive disorder, recurrent severe without psychotic features Current Visit: Yes Status: Acute Priority: High (2) Alcohol use disorder Current Visit: Yes Status: Acute Priority: High Hospital Course: Brief summary of admission note: This patient is a 58-year-old but female who was admitted to the mental health unit for acute suicidal ideation. The patient presented to the emergency room intoxicated with alcohol and a markedly elevated blood sugar. She has a history of major depressive disorder and alcohol use disorder. She had recently relapsed over the last week drinking a fifth of alcohol per day. She has 3 DUI offenses and was concerned that this relapse would violate her probation and she would be sent to skilled nursing/penitentiary. She reported feeling depressed tearful hopeless. She considered overdosing on medications once she got them filled. Energy had been reportedly low sleep had been poor. For full details please refer to my psychiatric evaluation dated 09/28/2018. Summary of hospital course: The patient was admitted to the mental health unit voluntarily. We reviewed her presenting symptoms and treatment options. She was being given Celexa and Cymbalta together both at subtherapeutic doses. We discussed that this is not conventionally done and we decided to continue with the Cymbalta and titrate to 60 mg daily. Ativan was used to prevent any alcohol withdrawal symptoms. During the course of the hospitalization we discussed her use of alcohol and decided to initiate naltrexone to help reduce cravings for substance use. She was seen by internal medicine for routine history and physical exam. Social work met with the patient several times for a psychosocial assessment and for discharge planning purposes. She was able to contact her district resource officer. The patient is required to attend inpatient chemical dependency treatment again before she can return back to her [facility] residents. The patient reported a progressive improvement of symptoms while here. She was pleasant cooperative and attended groups. She has noted a resolution of suicidal ideation. Mental status exam: The patient is an overweight female appearing her stated age. She is dressed in hospital gowns. Hygiene and grooming are adequate. Overall she is pleasant and cooperative. Speech is fluent spontaneous nonpressured. She denies having any suicidal ideation intent or plan. She reports her mood is much improved. Affect is appropriately expressive and appears euthymic today. She reports no homicidal ideation intent or plan. She is endorsing no auditory or visual hallucinations or any specific delusions. There is no observed evidence of psychosis. She demonstrates no tangential thinking loose associations or flight of ideas. She does not appear hypomanic or manic. Insight and judgment grossly intact. She remains oriented to person place and date. She demonstrates no verbal or physical aggressiveness. She demonstrates future oriented thinking. Impressions 1. Major depressive disorder recurrent severe without psychosis, alcohol use disorder 2. Diabetes, hypertension, neuropathy 3. Recent alcohol relapse causing psychosocial dysfunction Plan: The patient will be discharged from the mental health unit early tomorrow morning. Her family will pick her up at approximately 8 AM and she will be taken to [facility] for an intake appointment at 9 AM for inpatient chemical dependency treatment. At this time there is no imminent safety risk she is appropriate for transition to inpatient chemical dependency treatment with subsequent outpatient care. Upon discharge from [facility] she strongly encouraged to obtain a sponsor and attend AA meetings daily area she will continue on Cymbalta 60 mg daily and naltrexone 50 mg daily. Of course she is instructed to abstain from alcohol use or any other substance as it can cause a relapse of mood symptoms and elevate her safety risk. She is instructed to return to the hospital with any acute safety concerns. Patient Condition at Discharge: Stable Plan - Discharge Summary New Discharge Prescriptions: New amLODIPine [Norvasc] 2.5 mg PO DAILY #30 tab DULoxetine HCL [Cymbalta] 60 mg PO DAILY #30 capsule. Naltrexone HCl [Revia] 50 mg PO DAILY #30 tab Continue Gabapentin [Neurontin] 300 mg PO TID #45 cap Insulin Glargine,Hum.rec.anlog [Basaglar Kwikpen U-100] 30 unit SQ HS #1 insuln.pen Lisinopril [Zestril] 20 mg PO DAILY #30 tab metFORMIN HCL [Glucophage] 500 mg PO DAILY #30 tab Discontinued Ibuprofen [Motrin] 800 mg PO TID PRN PRN Reason: Pain Hydrochlorothiazide 25 mg PO DAILY DULoxetine HCL [Cymbalta] 30 mg PO DAILY Citalopram Hydrobromide [CeleXA] 10 mg PO DAILY Ergocalciferol (Vitamin D2) [Vitamin D2] 50,000 unit PO Q7D Discharge Medication List DULoxetine HCL [Cymbalta] 60 mg PO DAILY #30 capsule. 10/04/18 [Rx] Gabapentin [Neurontin] 300 mg PO TID #45 cap 10/04/18 [Rx] Insulin Glargine,Hum.rec.anlog [Basaglar Kwikpen U-100] 30 unit SQ HS #1 insuln.pen 10/04/18 [Rx] Lisinopril [Zestril] 20 mg PO DAILY #30 tab 10/04/18 [Rx] Naltrexone HCl [Revia] 50 mg PO DAILY #30 tab 10/04/18 [Rx] amLODIPine [Norvasc] 2.5 mg PO DAILY #30 tab 10/04/18 [Rx] metFORMIN HCL [Glucophage] 500 mg PO DAILY #30 tab 10/04/18 [Rx] Follow up Appointment(s)/Referral(s): [facility] [Outside] - 10/05/18 9:00 am (Sunday10/05/18 at 9: 00 ) Maryjane Larsen MD [Primary Care Provider] - 1-2 days Patient Instructions/Handouts: Depression (DC), Suicide Prevention (DC) Activity/Diet/Wound Care/Special Instructions: Remove all weapons and firearms from your home; Refrain from street drugs and alcohol; Diet and activity as tolerated; Follow-up with your PCP in 1-2 days; Keep all scheduled follow-up appointments for continuity of care; Take all meds. as prescribed; When you are in need of prescription refills, contact either your PCP or your aftercare psychiatrist; If you have any problems or worsen, call the Crisis Line at or go to the nearest for a psychiatric evaluation.
[2018-10-04 12:44] LABS: Glucose,Whole Blood 172 mg/dL (75-99)
[2018-10-04] MEDS: THIAMINE 100 MG TAB PO SCH (13:09)
[2018-10-04] MEDS: FOLIC ACID 1 MG TAB PO SCH (13:09)
[2018-10-04 17:06] LABS: Glucose,Whole Blood 193 mg/dL (75-99)
[2018-10-04 19:55] LABS: Glucose,Whole Blood 256 mg/dL (75-99)
[2018-10-04] MEDS: INSULIN DETEMIR 100 UNIT/ML 10 ML VIAL SQ SCH (21:28)
[2018-10-05 05:35] LABS: Glucose,Whole Blood 189 mg/dL (75-99)
[2018-10-05 05:58] VITALS: BP 101/61; RESP 18; TEMP 98
[2018-10-05] MEDS: INSULIN ASPART 100 UNIT/ML 1 ML 10 ML VIAL SQ SCH (06:36)
[2018-10-05] MEDS: metFORMIN 500 MG TAB PO SCH (07:33)
[2018-10-05] MEDS: GABAPENTIN 300 MG CAP PO SCH (07:33)
[2018-10-05] MEDS: NALTREXONE HCL 50 MG TAB PO SCH (07:33)
[2018-10-05] MEDS: LISINOPRIL 20 MG TAB PO SCH (07:33)
[2018-10-05] MEDS: amLODIPine 2.5 MG TAB PO SCH (07:33)
[2018-10-05] MEDS: DULoxetine HCL 60 MG CAPSULE.DR PO SCH (07:33)
== END 2018-10-05 07:57 | disposition home or self-care (01) | DRG 885 ==
LOC: EC 18:15 → 3MHU 09-28 05:20
PROVIDERS: ADMIT Psychiatry & Neurology Psychiatry; ATTEND Psychiatry & Neurology Psychiatry
DX: F33.3 Major depressive disorder, recurrent, severe with psychotic symptoms (principal); K50.90 Crohn's disease, unspecified, without complications; R45.851 Suicidal ideations; E11.40 Type 2 diabetes mellitus with diabetic neuropathy, unspecified; E11.65 Type 2 diabetes mellitus with hyperglycemia; E66.3 Overweight; F10.229 Alcohol dependence with intoxication, unspecified; I10 Essential (primary) hypertension; Z65.3 Problems related to other legal circumstances; Z79.4 Long term (current) use of insulin; Z79.899 Other long term (current) drug therapy; Z68.38 Body mass index [BMI] 38.0-38.9, adult
CPT/HCPCS: 36415; 80053; 80061; 80076; 80306; 81001; 81025; 82009; 82075; 83036; 83735; 84443; 85025; 96372; 96374; 96376; 99285